=== PATIENT | female | born 1995 | race Caucasian/White ===

== ENCOUNTER 2016-08-15 18:47 | Emergency (ER) ==
[2016-08-15] MEDS ORDERED: XYLOCAINE 1% INJ ONE (20:34)
[2016-08-15] MEDS ORDERED: TORADOL IM ONE (20:35)
--- NOTE | 2016-08-15 20:35 | PROVIDER DOCUMENTATION ---
HPI-Musculoskeletal Pain/Inj - GENERAL Chief Complaint: Extremity Injury Stated Complaint: RT HAND/RT SIDE PAIN, FELL DOWN STAIRS, NAUSEA Time Seen by Provider: 08/15/16 19:20 Source: patient - HX OF PRESENT ILLNESS-MUSKULOSKELTAL Nature of Presenting Problem: Pt is a 21 y/o F c chief complaint of R elbow pain, R wrist pain, R hip pain p falling down a flight of stairs. Pt states she was walking down wooden stairs in her socks and slipped backwards landing on her R side and sliding down the flight of stairs. Pt is unsure if she hit her head and feels that there is a period of several seconds that she does not remember. On arrival, pt is in minimal distress and ambulatory. Review of Systems - Adult - REVIEW OF SYSTEMS - ADULT Constitutional: reports: no symptoms reported. denies: chills, fatique Eyes: reports: no symptoms reported. denies: blurred vision, double vision Ears, Nose, Mouth & Throat: reports: no symptoms reported. denies: ear pain, nose pain Cardiovascular: reports: no symptoms reported. denies: chest pain, orthopnea Respiratory: reports: no symptoms reported. denies: cough, shortness of breath Gastrointestinal: reports: no symptoms reported. denies: abdominal pain, nausea Genitourinary: reports: no symptoms reported. denies: dysuria, frequent UTI's Musculoskeletal: reports: bone pain, joint pain, joint swelling Integumentary: reports: no symptoms reported. denies: hives, itching, rash Neurological: reports: no symptoms reported. denies: numbness, paresthesia Psychiatric: reports: no symptoms reported Endocrine: reports: no symptoms reported. denies: cold intolerance, heat intolerance Hematologic/Lymphatic: reports: no symptoms reported. denies: blood clots, low blood count Allergic/Immunologic: reports: no symptoms reported. denies: allergic reactions , food allergy All Other Systems: Reviewed and Negative Past History - Adult - PAST MEDICAL HISTORY-ADULT Review of Records: reports: Old Records Reviewed, Nursing Assessment Review, Medications Reviewed, Social history reviewed & non-contributory. Major Childhood Illnesses: reports: denies history Cardiovascular: reports: denies history Respiratory: reports: denies history Gastrointestinal: reports: denies history Obstetrical/Gynecological: reports: denies history Genitourinary: reports: denies history Musculoskeletal: reports: denies history Neurological: reports: denies history Endocrine/Immune: reports: denies history Other Conditions: reports: denies history - PRIOR SURGERIES/PROCEDURES Surgical/Procedure History: reports: none - IMMUNIZATION STATUS Childhood Immunizations: See Nurse Assessment Flu Vaccine: See Nurse Assessment - FAMILY HISTORY Family History: reviewed, not pertinent - SOCIAL HISTORY Smoking: denies Substance Use: none/never Alcohol Use Frequency: never Living Situation: family Physical Exam-Injury Related - Physical Exam-Injury Related Initial Vital Signs Reviewed: Yes General Appearance: appears well, alert, no apparent distress Eyes: PERRL/EOMI, pink conjunctivae Head, Ears, Nose, Mouth & Throat: normocephalic/atraumatic, moist mucous membranes Neck: non-tender, full range of motion, supple Respiratory: chest non-tender, lungs clear, normal breath sounds Cardiovascular: normal peripheral pulses Abdominal Exam: normal bowel sounds, non tender, soft Back Exam: normal inspection, no CVA tenderness, no vertebral tenderness Extremity: tenderness (R hip, R elbow, R wrist and hand c snuffbox tenderness.) Integumentary: normal color, warm/dry, blanching, laceration (R elbow, 1.5cm, olecranon) Neurologic: grossly normal, no motor/sensory deficits Psych/Mental Status: normal mood/affect, normal thought content, normal thought process, oriented x 3 - Glascow Coma Score Best Eye Response ([place]): (4) open spontaneously Best Verbal Response ([place]): (5) oriented Best Motor Response ([place]): (6) obeys commands Progress - PLAN OF CARE/RESULTS Progress/Plan/Lab Results: Orders Category Date Time Status Arm Sling DIRECTED Care 08/15/16 21:29 Active ED: Urine Bedside ORDERED Care 08/15/16 19:17 Active Laceration Set up DIRECTED Care 08/15/16 20:35 Active Wound Care DIRECTED Care 08/15/16 20:35 Active Wrist Splint DIRECTED Care 08/15/16 20:31 Active ELBOW COMPLETE RIGHT [RAD] Stat Exams 08/15/16 18:53 Taken FOREARM-RIGHT [RAD] Stat Exams 08/15/16 18:53 Taken HAND COMPLETE RIGHT [RAD] Stat Exams 08/15/16 18:53 Taken HEAD/C-SPINE W/O CONTRAST [CT] Stat Exams 08/15/16 20:31 Taken XRAY HIP UNILATERAL RT [RAD] Stat Exams 08/15/16 18:53 Taken Ketorolac [Toradol] Med 08/15/16 20:35 Discontinued 60 mg IM NOW ONE Lidocaine 1% [Xylocaine 1%] Med 08/15/16 20:34 Discontinued 10 ml INJ NOW ONE Vital Signs - 24 hr 08/15/16 18:49 Temperature 98.4 F Pulse Rate 105 H Respiratory 20 Rate Blood Pressure 136/79 O2 Sat by Pulse 100 Oximetry - XRAY 1 XRAY Study: Pelvis Impression: Normal XRAY Interpretation: NO FX 2 XRAY: Right XRAY Study: Elbow Impression: Normal XRAY Interpretation: NAD 3 XRAY: Right XRAY Study: Hand Impression: Normal XRAY Interpretation: NAD 4 XRAY: Right XRAY Study: Forearm Impression: Normal (NAD) - CT/MRI 1 CT Study: Cervical Spine, Head Impression: Normal CT Results: NAD - RADIOLOGY Procedures - LACERATION/WOUND REPAIR/FB Right Elbow Wound Location: Other: OLECRANON PROCESS R ELBOW Wound Length: 1.5CM LACERATION Wound's Depth, Shape: superficial Wound Explored/Foreign Body: clean Irrigated with Saline?: Yes Prepped with: Hibiclens Anesthetic: 1%, Lidocaine/Xylocaine Volume of Anesthetic (ml's): 4 Wound Debrided: minimal Wound Repaired with: Sutures Suture Size/Type: 4.0, Non-Absorbable, Nylon Number of Sutures: 2 Sterile Dressing Applied?: Yes Splint Applied?: Yes (ARM SLING) Sling Applied?: Yes Post Procedure Neurovascular Exam: Intact Departure - Departure Time of Disposition Order: 21:26 DIAGNOSIS: Fall Qualifiers: Encounter type: initial encounter Qualified Code(s): W19.XXXA - Unspecified fall, initial encounter Laceration of elbow Qualifiers: Encounter type: initial encounter Laterality: right Qualified Code(s): S51.011A - Laceration without foreign body of right elbow, initial encounter Sprain of wrist, right Qualifiers: Encounter type: initial encounter Qualified Code(s): S63.501A - Unspecified sprain of right wrist, initial encounter Contusion, hip Qualifiers: Encounter type: initial encounter Laterality: right Qualified Code(s): S70.01XA - Contusion of right hip, initial encounter Disposition: HOME 01 Certified Medical Emergency: Emergent Condition: Stable Additional Instructions: KEEP WOUND CLEAN, DRY, COVERED. CHANGE BANDAGE DAILY. RETURN TO THE ER IN 7 DAYS FOR EVALUATION AND POSSIBLE SUTURE REMOVAL. ED Follow Up Instructions: You have been treated by a care provider in the Emergency Department. These instructions are being provided to you so you can have an understanding of how to care for yourself upon discharge. Upon discharge from the Emergency Department, you are responsible for making arrangements for follow-up care by a physician of your choice. Take all prescribed medications as directed. Return to the Emergency Department immediately for any new or worsening symptoms. You may call the Physician Referral phone number at [phone] to obtain a list of Physicians who are taking new patients. Prescriptions: Cyclobenzaprine [Flexeril] 10 mg PO TID #20 tablet Ibuprofen [Motrin] 800 mg PO Q8H PRN PRN #20 tablet PRN Reason: inflammation Omeprazole [Prilosec] 20 mg PO DAILY@0700 #20 capsule Referrals: Demar Chan MD [STAFF PHYSICIAN] - Attestation - Physician/ [facility] Attestation Patient care was provided by Advanced Practice Provider:: Yes Advanced Practice Provider:: Darren Ram Advanced Practice Provider documentation review:: The Mid-level provider documentation, treatment plan and medical decision making was reviewed by the physician who agrees with all treatment and medical decision making by the MLP.
[2016-08-15 22:18] VITALS: BP 105/69
--- NOTE | 2016-08-16 07:02 | Diag Imaging Result Document ---
PROCEDURE NAME: FOREARM-RIGHT - 08/15/2016 RIGHT FOREARM, TWO VIEWS: FINDINGS: No fracture. No dislocation. IMPRESSION: No acute bony injury.
--- NOTE | 2016-08-16 07:03 | Diag Imaging Result Document ---
PROCEDURE NAME: ELBOW COMPLETE RIGHT - 08/15/2016 RIGHT ELBOW, THREE VIEWS: FINDINGS: No fracture. No dislocation. IMPRESSION: No acute bony injury.
--- NOTE | 2016-08-16 07:05 | Diag Imaging Result Document ---
PROCEDURE NAME: HAND COMPLETE RIGHT - 08/15/2016 RIGHT HAND, THREE VIEWS: FINDINGS: No fracture. No dislocation. IMPRESSION: No acute bony injury.
--- NOTE | 2016-08-16 07:10 | Diag Imaging Result Document ---
PROCEDURE NAME: XRAY HIP UNILATERAL RT - 08/15/2016 PELVIS AND RIGHT HIP, TWO VIEWS: FINDINGS: No fracture. No dislocation. IMPRESSION: No acute bony injury.
--- NOTE | 2016-08-16 09:09 | Diag Imaging Result Document ---
PROCEDURE NAME: HEAD/C-SPINE W/O CONTRAST - 08/15/[address], 08/15/2016: A CT dose reduction protocol was used. COMPARISON: None FINDINGS: The ventricles and sulci are normal in size and contour. There is no mass, hemorrhage, or evidence of acute ischemia. The bony calvaria is intact. The visualized paranasal sinuses and mastoid air cells are clear. IMPRESSION: Negative head CT. CT CERVICAL SPINE, 08/15/2016: A CT dose reduction protocol was used. FINDINGS: Alignment is anatomic. Vertebral body heights and intervertebral disc spaces are preserved. Neural foramina are patent. Soft tissues are clear. IMPRESSION: Negative Exam. [facility]
== END 2016-08-15 22:17 | disposition home or self-care (01) ==
LOC: ED 18:47
DX: S51.011A Laceration without foreign body of right elbow, initial encounter (principal); S63.501A Unspecified sprain of right wrist, initial encounter; S70.01XA Contusion of right hip, initial encounter; M25.521 Pain in right elbow; M25.531 Pain in right wrist; M25.551 Pain in right hip; M25.40 Effusion, unspecified joint; W10.8XXA Fall (on) (from) other stairs and steps, initial encounter
CPT/HCPCS: 70450; 72125; J1885